=== PATIENT | female | born 2000 | race Caucasian/White ===

== ENCOUNTER 2021-07-22 23:19 | Emergency (ER) | payer BC ==
[~2021-07-22] VITALS: Ht 154.9 cm; Wt 52.6 kg
--- NOTE | 2021-07-22 23:50 | NUR ---
MD Jonathan Sutherland in room to do MSE.
[2021-07-23 00:13] LABS: *URINE HCG, QUAL NEGATIVE (NEGATIVE)
[2021-07-23] MEDS: ONDANSETRON ODT 4 MG TAB.RAPDIS SL ONE (00:15)
[2021-07-23] MEDS ORDERED: CYCL10TA9 PO (00:18)
[2021-07-23] MEDS ORDERED: ONDA4TAB5 PO (00:18)
[2021-07-23] MEDS ORDERED: HYDR-4209 PO (00:18)
[2021-07-23] MEDS: HYDROCODONE/APAP 5-325MG TABLET PO ONE (00:19)
[2021-07-23] MEDS: LORAZEPAM 0.5 MG TABLET PO ONE (00:19)
[2021-07-23] MEDS ORDERED: ONDANSETRON ODT 4 MG TAB.RAPDIS ONE (00:22)
[2021-07-23] MEDS ORDERED: HYDROCODONE/APAP 5-325MG TABLET ONE (00:23)
[2021-07-23] MEDS ORDERED: LORAZEPAM 0.5 MG TABLET ONE (00:23)
[2021-07-23 00:31] VITALS: BP 120/60
--- NOTE | 2021-07-23 00:32 | NUR ---
Patient discharged to home in stable condition. Written and verbal after care instructions given. Patient verbalizes understanding of instructions. Stressed follow up or return to ER for worsening s/s. Patient ambulatory with steady gait, V/S stable, paper Rx given, instructed to not drive, said she was getting a ride back to her home. Left with all personal belongings.
== END 2021-07-23 00:33 | disposition home or self-care (01) ==
LOC: ER 23:22
DX: R51.9 Headache, unspecified (principal); S16.1XXA Strain of muscle, fascia and tendon at neck level, initial encounter; V43.92XA Unspecified car occupant injured in collision with other type car in traffic accident, initial encounter; Y92.414 Local residential or business street as the place of occurrence of the external cause
CPT/HCPCS: 84703; A4663; Q0162